=== PATIENT | male | born 1985 | race Caucasian/White ===

== ENCOUNTER → 2017-08-27 | Outpatient (CLI) | payer OTHER ==
--- NOTE | 2017-08-27 14:06 | CT ---
EXAMINATION TYPE: CT chest w con DATE OF EXAM: 08/27/2017 COMPARISON: 05/29/2016 HISTORY: Pulmonary nodule, no chest complaints CT DLP: 445.7 mGycm, Automated exposure control for dose reduction was used. CONTRAST: Performed injected with 100 mL of Omnipaque 300. TECHNIQUE: Axial images were obtained at 5 mm thick sections. Reconstructed images are reviewed on [employer] computer in the coronal plane. FINDINGS: Portion of the thyroid visualized is normal. Previous nodule measuring 0.5 cm on the current examination has no interval growth from the compariso n study. Series 4 image 25 No enlarged mediastinal or hilar adenopathy is evident. The ascending aorta diameter at the level o f the main pulmonary artery is 3.3 cm. The main pulmonary artery diameter at the bifurcation is 2.9 cm. Small hiatal hernia is present. Limited CT sections are obtained through the upper abdomen. Bilateral renal cysts are present within the upper poles. The larger is on the left measuring 17 Hounsfield units and 5.9 cm in AP dimension, the larger on the right in the upper anterior pole measures 18 Hounsfield units and 2.7 cm. These are better visualized than the comparison. There is a 0.7 cm calcification superior pole right kidney. IMPRESSIONS: 1. Stable 0.5 cm right midlung pulmonary nodule. This should be confirmed as stable over the course o f 2 years. Follow-up exam in one year is recommended.
== END ==
LOC: RADCTMAIN 11:04
PROVIDERS: ATTEND Internal Medicine Critical Care Medicine
DX: R91.1 Solitary pulmonary nodule (principal)
CPT/HCPCS: 71260; Q9967

== ENCOUNTER → 2019-05-19 | Outpatient (CLI) | payer OTHER ==
[2019-05-19 16:44] LABS: African American GFR (CKD) 81.4 (60.0-200.0); Albumin 4.7 g/dL (3.80-4.90); Albumin/Globulin Ratio 2.24 (1.60-3.17); Anion Gap 8.5 mmol/L (4.00-12.00); BUN/Creat Ratio 11.54 Ratio (12.00-20.00); Calcium 9.8 mg/dL (8.7-10.3); Carbon Dioxide 30.5 mmol/L (21.6-31.8); Chol/HDL Ratio 3.92; Globulin 2.1 g/dL (1.6-3.3); LDL Cholesterol,Calculated 116.2 mg/dL (0.0-131.0); Potassium 4.3 mmol/L (3.5-5.5); Total Bilirubin 0.8 mg/dL (0.2-1.2); Total Protein 6.8 g/dL (6.2-8.2); VLDL Calculation 23.8 mg/dL (5.00-40.00)
== END | disposition home or self-care (01) ==
LOC: LABWHC1 09:39
PROVIDERS: ATTEND Internal Medicine
DX: E10.65 Type 1 diabetes mellitus with hyperglycemia (principal)
CPT/HCPCS: 36415; 80053; 80061; 82043; 82570; 84443

== ENCOUNTER → 2022-03-06 | Outpatient (CLI) | payer OTHER ==
[2022-03-06 18:30] LABS: ALT 23 U/L (10-49); AST 20 U/L (14-35); African American GFR (CKD) 91.1 (60.0-200.0); Albumin 4.7 g/dL (3.8-4.9); Albumin/Globulin Ratio 1.79 (1.60-3.17); Alkaline Phosphatase 126 U/L (41-126); BUN/Creat Ratio 10.77 Ratio (12.00-20.00); Blood Urea Nitrogen 12.6 mg/dL (9.0-27.0); Calcium 9.6 mg/dL (8.7-10.3); Carbon Dioxide 28.1 mmol/L (20.0-27.5); Chloride 99 mmol/L (96-109); Globulin 2.6 g/dL (1.6-3.3); Glucose 236 mg/dL (70-110); LDL Cholesterol,Calculated 113.2 mg/dL (0.0-131.0); Non-African American GFR(CKD) 78.6 (60.0-200.0); Potassium 4.1 mmol/L (3.5-5.5); Sodium 137 mmol/L (135-145); Total Protein 7.3 g/dL (6.2-8.2)
[2022-03-07 00:21] LABS: Urine Creatinine 85.3 mg/dL (39.0-259.0)
== END | disposition home or self-care (01) ==
LOC: LABWHC1 11:04
PROVIDERS: ATTEND Physician Assistant
DX: E10.65 Type 1 diabetes mellitus with hyperglycemia (principal); E78.1 Pure hyperglyceridemia
CPT/HCPCS: 36415; 80053; 80061; 82043; 82570; 84443

== ENCOUNTER → 2024-07-14 | Outpatient (CLI) | payer OTHER ==
--- NOTE | 2024-07-14 14:15 | MR ---
EXAMINATION TYPE: MR knee LT wo con DATE OF EXAM: 07/14/2024 12:57 PM COMPARISON: None. CLINICAL INDICATION: Male, 39 years old with history of M25.562 PAIN IN LEFT KNEE, IV Contrast: cc (None if empty) TECHNIQUE: Multiplanar, multisequence imaging of the left knee is performed without IV contrast. FINDINGS: MEDIAL MENISCUS: Anterior and posterior horns are intact without tear. LATERAL MENISCUS: Anterior and posterior horns are intact without tear. CRUCIATE LIGAMENTS: The anterior and posterior cruciate ligaments are intact and unremarkable. COLLATERAL LIGAMENTS: The medial collateral ligament and lateral collateral ligament complex are inta ct and unremarkable. EXTENSOR MECHANISM: Visualized quadriceps and patellar tendons are intact. EFFUSION: Small joint effusion noted. POPLITEAL CYST: No popliteal/pope cyst. TRICOMPARTMENT SPACES: Moderate narrowing medial tibiofemoral joint space. CARTILAGE/BONE MARROW SIGNAL: Focal abnormal increased signal involving the medial aspect of the medi al femoral condyle anteriorly as well as an additional focus posteriorly. Reflect underlying contusio n. Anteriorly at the femoral condyle there is cartilaginous defects seen small loose body noted to me asure 2.6 mm and 4.7 mm respectively. OTHER: No additional significant abnormality is appreciated. IMPRESSION: Focal abnormal increased signal involving the medial aspect of the medial femoral condyle anteriorly as well as an additional focus posteriorly. Reflect underlying contusion. Anteriorly at the femoral c ondyle there is cartilaginous defects seen small loose body noted to measure 2.6 mm and 4.7 mm respec tively. [facility], , 07/14/2024 2:13 PM
== END | disposition home or self-care (01) ==
LOC: RADMRIMAIN 12:23
PROVIDERS: ATTEND Orthopaedic Surgery
DX: S80.02XA Contusion of left knee, initial encounter (principal); X58.XXXA Exposure to other specified factors, initial encounter